=== PATIENT | female | born 1990 | race Caucasian/White ===

== ENCOUNTER 2021-12-08 05:50 | Emergency (ER) | payer MEDICAID ==
[~2021-12-08] VITALS: Ht 167.6 cm; Wt 90.7 kg
[2021-12-08 06:22] VITALS: BP 134/70
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
[2021-12-08] MEDS ORDERED: KETOROLAC TROMETHAMINE 15 MG/ML VIAL ONE (06:27)
[2021-12-08] MEDS ORDERED: CYCLOBENZAPRINE 10 MG TABLET ONE (06:27)
[2021-12-08] MEDS ORDERED: CYCL10TA9 PO (06:28)
[2021-12-08] MEDS ORDERED: NAPR-1164 PO (06:28)
[2021-12-08] MEDS ORDERED: LIDO30AD10 TP (06:28)
[2021-12-08] MEDS ORDERED: KETOROLAC TROMETHAMINE INJ 60 MG/2 ML VIAL IM ONE (06:30)
[2021-12-08] MEDS ORDERED: CYCLOBENZAPRINE 10 MG TABLET PO ONE (06:30)
== END 2021-12-08 06:39 | disposition home or self-care (01) ==
LOC: ER 05:59
DX: S13.4XXA Sprain of ligaments of cervical spine, initial encounter (principal); E11.9 Type 2 diabetes mellitus without complications; Z79.899 Other long term (current) drug therapy; V89.2XXA Person injured in unspecified motor-vehicle accident, traffic, initial encounter; Y93.89 Activity, other specified; Y92.89 Other specified places as the place of occurrence of the external cause; Y99.8 Other external cause status
CPT/HCPCS: 99283; 96372; J1885